=== PATIENT | male | born 1990 | race Two or more races ===

== ENCOUNTER 2016-09-23 15:42 | Emergency (ER) | payer MEDICAID ==
[~2016-09-23] VITALS: Ht 172.7 cm; Wt 95.3 kg
[2016-09-23 16:24] LABS: APPEARANCE,URINE CLEAR; KETONES,URINE NEGATIVE (NEGATIVE); LEUKOCYTE ESTERASE ,URINE NEGATIVE (NEGATIVE); NITRITE,URINE NEGATIVE (NEGATIVE); PROTEIN,URINE NEGATIVE (NEGATIVE); UROBILINOGEN,URINE NORMAL MG/DL (0.0-1.0)
[2016-09-23] MEDS ORDERED: Phenazopyridine 200mg tab ORAL ONE (17:00)
--- NOTE | 2016-09-23 17:02 | Emergency Room Report ---
History of Present Illness General Chief Complaint: Male Urogenital Problems Source: Patient Present Illness HPI 26 YO male presents emergency department complaining of 6/10 in severity bilateral testicular pain in addition to suprapubic pain and intermittent low back and bilateral thigh pain x4 days. Patient denies testicular swelling, swollen or tender lymph nodes, history of STI, lesions, nausea, vomiting, fevers or recent intercourse. Pt states that the pain will resolve sometimes with stretching or frequently moving around. he also reports dysuria, denies hematuria. Pt. denies recent trauma to the groin. denies rashes or hx of lesions. Pt. denies previous episodes of testicular pain. pt. denies constipation or diarrhea. Denies penile D/C Denies pertinent past medical history. Allergies: Coded Allergies: No Known Allergies (Unverified , 07/27/16) Patient History Past Medical History: see triage record Past Surgical History: none Pertinent Family History: none Immunizations: UTD Reviewed Nursing Documentation: PMH: Agreed, PSxH: Agreed Nursing Documentation-PMH Past Medical History: No Stated History Review of Systems All Other Systems: negative except mentioned in HPI Physical Exam Vital Signs Date Time Temp Pulse Resp B/P Pulse Ox O2 Delivery O2 Flow Rate FiO2 09/23/16 15:50 98.1 102 16 117/71 97 Room Air Sp02 EP Interpretation: reviewed, normal General Appearance: no apparent distress, alert, GCS 15, non-toxic Head: normocephalic, atraumatic Eyes: bilateral eye PERRL, bilateral eye normal inspection ENT: hearing grossly normal, normal pharynx, no angioedema, normal voice Neck: full range of motion, supple/symm/no masses Respiratory: chest non-tender, lungs clear, normal breath sounds, speaking full sentences Cardiovascular #1: regular rate, rhythm, no edema Gastrointestinal: normal bowel sounds, non tender, soft, no guarding, no rebound, other - mild suprapubic TTP, no distention noted Rectal: deferred Genitourinary: normal inspection, no CVA tenderness, penis normal, scrotum normal, other - cremasterics reflex is difficult to visualize bilaterally, no change in testicular lay, Phren sign is negative there is no relief upon elevation Musculoskeletal: back normal, gait/station normal, normal range of motion, non- tender, no calf tenderness Neurologic: alert, oriented x3, responsive, motor strength/tone normal, sensory intact, speech normal Psychiatric: judgement/insight normal, memory normal, mood/affect normal, no suicidal/homicidal ideation Skin: normal color, no rash, warm/dry, well hydrated Lymphatic: no adenopathy Medical Decision Making PA Attestation Dr. Simental is my supervising Physician whom patient management has been discussed with. Diagnostic Impression: Primary Impression: Varicocele ER Course 01/28 in severity bilateral testicular pain in addition to suprapubic pain and intermittent low back and bilateral thigh pain x4 days. Patient denies testicular swelling, swollen or tender lymph nodes, history of STI, lesions, nausea, vomiting, fevers or recent intercourse. Ddx considered but are not limited to testicular torsion, epididymitis, orchitis , abscess, hernia, urethritis Vital signs: are WNL, pt. is afebrile H&PE are most consistent with possible urethritis, as cremasterics reflex is difficult to visualize bilaterally, no change in testicular lay, Phren sign is negative there is no relief upon elevation ORDERS: - UA: no evidence of infection. ED INTERVENTIONS: -200mg Pyridium - 250mg IM Rocephin - Testicular US: positive for bilateral varicoceles, no evidence of epididymitis /orchitis, no torsion per preliminary US report. DISCHARGE: At this time pt. is stable for d/c to home. Will provide printed patient care instructions, and any necessary prescriptions. Care plan and follow up instructions have been discussed with the patient prior to discharge. Labs Test 09/23/16 15:55 Urine Color Yellow Urine Appearance Clear Urine pH 6.0 (4.5-8.0) Urine Specific [place] 1.015 (1.005-1.035) Urine Protein Negative (NEGATIVE) Urine Glucose (UA) Negative (NEGATIVE) Urine Ketones Negative (NEGATIVE) Urine Occult Blood Negative (NEGATIVE) Urine Nitrite Negative (NEGATIVE) Urine Bilirubin Negative (NEGATIVE) Urine Urobilinogen Normal MG/DL (0.0-1.0) Urine Leukocyte Esterase Negative (NEGATIVE) Last Vital Signs Date Time Temp Pulse Resp B/P Pulse Ox O2 Delivery O2 Flow Rate FiO2 09/23/16 15:50 98.1 102 16 117/71 97 Room Air Disposition: HOME, SELF-CARE Condition: Stable Scripts Ibuprofen* (MOTRIN*) 600 Mg Tablet 600 MG ORAL THREE TIMES A DAY, #30 TAB 0 Refills Prov: Anne,Unique P.A. 09/23/16 Doxycycline Hyclate* (VIBRAMYCIN*) 100 Mg Capsule 100 MG ORAL EVERY 12 HOURS for 7 Days, #14 CAP 0 Refills Prov: Unique Anne 09/23/16 Referrals: QAMAR ACOSTA,REFERRING (PCP) Patient Instructions: Varicocele Additional Instructions: Take medications as directed. Follow up with PCP in 3-5 days Return sooner to ED if new symptoms occur, or current symptoms become worse. Unique Anne Sep 23, 2016 17:02
[2016-09-23] MEDS ORDERED: Lidocaine 1% MPF 10mg/ml 5ml ONE (17:07)
[2016-09-23] MEDS ORDERED: VIBRAMYCIN100 MG ORAL (18:19)
[2016-09-23] MEDS ORDERED: IBUPROFEN600 MG ORAL (18:19)
[2016-09-23 18:40] VITALS: BP 127/75
--- NOTE | 2016-09-24 11:01 | Diagnostic Imaging Report ---
Indication:Scrotal pain Technique: Real time grayscale and duplex Doppler imaging of the scrotum performed. Comparison: None Findings: The size, contour, and echogenicitiy of the testis appear normal bilaterally. There is no mass or abnormal fluid collections within the scrotum. There is good doppler evidence of blood flow within both testes. Epididimi show a few small cysts. Suspect left varicocele. Questionable small right there are still small. Impression: No evidence of testicular torsion or mass. Varicocele on the left.
== END 2016-09-23 18:40 | disposition home or self-care (01) ==
LOC: EMR 16:24
DX: I86.1 Scrotal varices (principal)
CPT/HCPCS: 76870; 81003; 96372; 99284; J0696

== ENCOUNTER 2016-10-05 21:29 | Emergency (ER) | payer MEDICAID ==
[~2016-10-05] VITALS: Ht 172.7 cm; Wt 106.6 kg
[~2016-10-05 21:29] MED LIST: IBUPROFEN600 MG ORAL; VIBRAMYCIN100 MG ORAL
--- NOTE | 2016-10-05 21:59 | Emergency Room Report ---
History of Present Illness General Chief Complaint: General Complaint Source: Patient Present Illness [facility] This is a 26-year-old male with no past medical history. He presents with chief complaint of palpitation and chest pain. Onset for last 2 days. Usually at night. He felt some sharpness lasting a few seconds left chest area. He said his heart skipping beats and beating fast. Unable to sleep. Said he alcohol on the weekend. Denies any drug use. Denies any energy drinks. No other complaint. Never had this problem before but I saw him in July for similar complaint. Allergies: Coded Allergies: No Known Allergies (Unverified , 07/27/16) Patient History Past Medical History: none, see triage record, old chart reviewed Past Surgical History: none Pertinent Family History: none Social History: Denies: smoking Immunizations: other Reviewed Nursing Documentation: PMH: Agreed, PSxH: Agreed Nursing Documentation-PMH Past Medical History: No Stated History Review of Systems Eye: Denies: blurred vision, eye pain ENT: Denies: ear pain, nose congestion, throat swelling Respiratory: Denies: cough, shortness of breath Cardiovascular: Reports: chest pain, palpitations Gastrointestinal: Denies: abdominal pain, diarrhea, nausea, vomiting Musculoskeletal: Denies: back pain, joint pain Skin: Denies: rash Neurological: Denies: headache, numbness Endocrine: Denies: increased thirst, increased urine Hematologic/Lymphatic: Denies: easy bruising All Other Systems: negative except mentioned in HPI Physical Exam Vital Signs Date Time Temp Pulse Resp B/P Pulse Ox O2 Delivery O2 Flow Rate FiO2 10/05/16 21:38 98.4 90 16 135/89 99 Room Air vitals normal Sp02 EP Interpretation: reviewed, normal General Appearance: well appearing, no apparent distress, alert, obese Head: normocephalic, atraumatic Eyes: bilateral eye EOMI, bilateral eye PERRL ENT: hearing grossly normal, normal pharynx Neck: full range of motion, supple, no meningismus Respiratory: chest non-tender, lungs clear, normal breath sounds Cardiovascular #1: regular rate, rhythm, no murmur Gastrointestinal: normal bowel sounds, non tender, no mass, no organomegaly, no bruit, non-distended Musculoskeletal: back normal, gait/station normal, normal range of motion Psychiatric: mood/affect normal Skin: warm/dry Medical Decision Making Diagnostic Impression: Primary Impression: Non-cardiac chest pain Additional Impression: Palpitations ER Course Patient presents with atypical noncardiac chest pain. No evidence of ACS, PE, dissection. He complaining of palpitation but heart rate normal. This may be secondary to anxiety/stress. I see no evidence of arrhythmia. We'll be followup and referral to see a counter help for Holter monitor if not better. EKG Diagnostic Results Rate: normal Rhythm: NSR ST Segments: no acute changes Rhythm Strip Diag. Results EP Interpretation: yes Rate: 90 Rhythm: NSR, no PVC's, no ectopy Last Vital Signs Date Time Temp Pulse Resp B/P Pulse Ox O2 Delivery O2 Flow Rate FiO2 10/05/16 21:38 98.4 90 16 135/89 99 Room Air Status: unchanged Disposition: HOME, SELF-CARE Condition: Stable Additional Instructions: Followup with your Dr. within 7 days. Avoid alcohol or any any energy drinks. You may need a referral to see a counter help for a Holter monitor. Return if worse. FERNANDO SOUSA M.D. Oct 05, 2016 21:59
[2016-10-05 22:06] VITALS: BP 135/89
--- NOTE | 2016-10-07 15:10 | Cardiology Report ---
APPROVED REPORT EKG Measurement Heart [id number] Normal sinus rhythm Possible Acute pericarditis Abnormal ECG
== END 2016-10-05 22:06 | disposition home or self-care (01) ==
LOC: EMR 21:58
DX: R07.89 Other chest pain (principal); R00.2 Palpitations
CPT/HCPCS: 93005; 99282

== ENCOUNTER 2016-11-12 23:13 | Emergency (ER) | payer MEDICAID ==
[~2016-11-12] VITALS: Ht 172.7 cm; Wt 100.2 kg
[2016-11-12 23:30] VITALS: BP 137/92
--- NOTE | 2016-11-13 00:07 | Emergency Room Report ---
History of Present Illness General Chief Complaint: Gastrointestinal Bleed Source: Patient Present Illness HPI Is a 26-year-old male with no past history. He presents with chief when a rectal bleeding. Onset or couple weeks now. On and off. He seen his doctor he said it was nothing serious. He he went to [facility] and was so has an anal fissure. When he wiped he noticed some blood. Is way came back here for a third opinion. No trauma no other complaint. Allergies: Coded Allergies: No Known Allergies (Unverified , 07/27/16) Patient History Past Medical History: see triage record, old chart reviewed Past Surgical History: none Pertinent Family History: none Social History: Denies: smoking Immunizations: other Reviewed Nursing Documentation: PMH: Agreed, PSxH: Agreed Nursing Documentation-PMH Past Medical History: No Stated History Review of Systems Eye: Denies: blurred vision, eye pain ENT: Denies: ear pain, nose congestion, throat swelling Respiratory: Denies: cough, shortness of breath Cardiovascular: Denies: chest pain, palpitations Gastrointestinal: Denies: abdominal pain, diarrhea, nausea, vomiting Musculoskeletal: Denies: back pain, joint pain Skin: Denies: rash Neurological: Denies: headache, numbness Endocrine: Denies: increased thirst, increased urine Hematologic/Lymphatic: Denies: easy bruising All Other Systems: negative except mentioned in HPI Physical Exam Vital Signs Date Time Temp Pulse Resp B/P Pulse Ox O2 Delivery O2 Flow Rate FiO2 11/12/16 23:25 98.2 67 15 135/91 98 Room Air vitals normal Sp02 EP Interpretation: reviewed, normal General Appearance: well appearing, no apparent distress, alert Head: normocephalic, atraumatic Eyes: bilateral eye EOMI, bilateral eye PERRL ENT: hearing grossly normal, normal pharynx Neck: full range of motion, supple, no meningismus Respiratory: chest non-tender, lungs clear, normal breath sounds Cardiovascular #1: regular rate, rhythm, no murmur Gastrointestinal: normal bowel sounds, non tender, no mass, no organomegaly, no bruit, non-distended Rectal: other - small fissure at 11 o'clock position. Musculoskeletal: back normal, gait/station normal, normal range of motion Neurologic: alert, oriented x3 Psychiatric: mood/affect normal Skin: warm/dry Medical Decision Making Diagnostic Impression: Primary Impression: Acute anal fissure ER Course Patient with anal fissure. No evidence of external hemorrhoid. Reassurance that is not cancer. We'll discharge home. Last Vital Signs Date Time Temp Pulse Resp B/P Pulse Ox O2 Delivery O2 Flow Rate FiO2 11/12/16 23:30 98.2 89 16 137/92 100 Room Air Status: improved Disposition: HOME, SELF-CARE Condition: Stable Additional Instructions: followup with your Dr. as needed. Return if symptom worsen. FERNANDO SOUSA M.D. Nov 13, 2016 00:07
[2016-11-13 00:20] VITALS: BP 130/94
== END 2016-11-13 00:20 | disposition home or self-care (01) ==
LOC: EMR 23:55
DX: K60.2 Anal fissure, unspecified (principal)
CPT/HCPCS: 99282

== ENCOUNTER 2018-09-29 11:36 | Emergency (ER) | payer MEDICAID ==
[~2018-09-29] VITALS: Ht 172.7 cm; Wt 105.2 kg
[2018-09-29] MEDS ORDERED: NKM (11:41)
[2018-09-29 11:50] VITALS: BP 136/92
--- NOTE | 2018-09-29 11:51 | NUR ---
ED Nurse Note: pt walked in to ED due to pain on right back that started about 1 hr ago. pt denies any activity done or injury. unable to straight due to pain. AAO x4. respirations even and non-labored noted. skin warm to touch. no open wound noted. will wait for the further order.
--- NOTE | 2018-09-29 12:00 | NUR ---
ED Nurse Note: pt c/o burning urination but denies to do urine test. per pt, "wants to come back."
[2018-09-29] MEDS ORDERED: LIDODERM700 M1 TOPIC (12:05)
[2018-09-29] MEDS ORDERED: IBUPROFEN600 MG ORAL (12:05)
[2018-09-29] MEDS ORDERED: ROBAXIN-750750 MG PO (12:05)
[2018-09-29 12:10] VITALS: BP 136/92
--- NOTE | 2018-09-29 12:10 | NUR ---
ED Nurse Note: Patient is being discharged from medical care with prescripions. Awake, alert and oriented x3. ID band were removed. Patient ambulated out with all personal belongings with steady gait.
[2018-09-29] MEDS ORDERED: Ketorolac 30mg Inj IM ONE (12:15)
[2018-09-29] MEDS ORDERED: Methocarbamol 750mg tab ORAL ONE (12:15)
--- NOTE | 2018-09-29 13:10 | Emergency Room Report ---
History of Present Illness General Chief Complaint: Lower Back Pain or Injury Source: Patient Present Illness HPI 28-year-old male presents ED complaining of back pain. Notes pain to his lower back. Started this morning when he got off of work. Patient is a advertising analyst. Patient states pain is localized to right lower back, throbbing, 8 out of 10, nonradiating. Denies flank pain. Denies bowel or bladder incontinence. denies leg or motor weakness. Denies any specific injury. Allergies: Coded Allergies: No Known Allergies (Unverified , 07/27/16) Patient History Past Medical History: none Past Surgical History: none Pertinent Family History: none Social History: Denies: smoking, alcohol use, drug use Immunizations: UTD Reviewed Nursing Documentation: PMH: Agreed; PSxH: Agreed Nursing Documentation-PMH Past Medical History: No Stated History Review of Systems All Other Systems: negative except mentioned in HPI Physical Exam Vital Signs Date Time Temp Pulse Resp B/P (MAP) Pulse Ox O2 Delivery O2 Flow Rate FiO2 09/29/18 11:37 97.5 72 18 136/92 98 Room Air Sp02 EP Interpretation: reviewed, normal General Appearance: no apparent distress, alert, GCS 15, non-toxic Head: normocephalic Eyes: bilateral eye normal inspection, bilateral eye PERRL ENT: normal ENT inspection Neck: normal inspection Respiratory: normal inspection Cardiovascular #1: normal inspection Gastrointestinal: normal inspection Rectal: deferred Genitourinary: no CVA tenderness, no vertebral tenderness Musculoskeletal: tender - paraspinal lumbar tenderness Neurologic: alert, oriented x3, responsive, motor strength/tone normal, sensory intact, speech normal Psychiatric: normal inspection Skin: normal inspection Lymphatic: normal inspection Medical Decision Making Diagnostic Impression: Primary Impression: Low back pain Qualified Codes: M54.5 - Low back pain ER Course Hospital Course 28-year-old male presents ED complaining of lower back pain. No evidence of trauma Differential diagnoses include: pyelonephritis, kidney stone, muscle strain, Lspine fracture Clinical course Patient placed on stretcher. After initial history, physical exam reveals male in no acute distress. There is no vertebral body tenderness. There is paraspinal lumbar tenderness on the right. No flank pain. Likely muscular. No indication for imaging. I ordered toradol, robaxin and lidoderm. Upon reassessment patient states pain has improved. Patient documents that his father has history of kidney stones. Patient has no flank pain. No hematuria. I offered option to check UA but patient declined. Safe for discharge with close outpatient follow-up. patient states he has a PMD Diagnosis - back pain Stable and discharged to home with prescription for Motrin, robaxin, lidoderm. Followup with PMD. Return to ED if symptoms recur or worsen Last Vital Signs Date Time Temp Pulse Resp B/P (MAP) Pulse Ox O2 Delivery O2 Flow Rate FiO2 09/29/18 12:10 97.5 72 18 136/92 98 Room Air Status: improved Disposition: HOME, SELF-CARE Condition: Stable Scripts Methocarbamol* (ROBAXIN-750*) 750 Mg Tablet 750 MG PO TID, #21 TAB 0 Refills Prov: Lawson Solomon MD 09/29/18 Lidocaine (Lidoderm) 1 Each Adh..patch 1 PATCH TOPIC DAILY, #7 PATCH 0 Refills Patch(es) may remain in place for up to 12 hours in any 24-hour period. Prov: Lawson Solomon MD 09/29/18 Ibuprofen* (MOTRIN*) 600 Mg Tablet 600 MG ORAL Q8H PRN for For Pain, #30 TAB 0 Refills Prov: Lawson Solomon MD 09/29/18 Referrals: [facility] Mccord [facility] Departure Forms: Return to Work Return to Work Date: Oct 01, 2018 Work Restrictions: No Prolonged Standing Patient Instructions: Low Back Sprain With Rehab-Sports[facility] Lawson Solomon MD Sep 29, 2018 13:10
== END 2018-09-29 12:12 | disposition home or self-care (01) ==
LOC: EMR 12:05
DX: M54.5 Low back pain (principal)
CPT/HCPCS: 96372; 99283; J1885